=== PATIENT | male | born 1960 | race Caucasian/White ===

== ENCOUNTER → 2020-05-02 | Outpatient (CLI) | payer OTHER ==
[~2020-05-02] MED LIST: ADVAIR HFA 115-28 GM INH; AMLODIPINE BESYL5 MG PO; COREG 25MG TAB25 MG PO; COZAAR100 MG PO; HYDRALAZINE HCL25 MG PO; HYDROXYZINE HCL25 MG PO; HYGROTON TAB 2525 MG PO; IBUPROFEN800 MG PO; LO-DOSE ASPIRIN81 MG PO; LOVENOX SY30 MG/0.3 SQ; MUCINEX600 MG PO; NORCO 10-325 T1 EACH PO; OMEPRAZOLE20 M1 PO; PANTOPRAZOLE SO40 MG PO; PRAVACHOL80 MG PO; ZYRTEC10 M3 PO
== END ==
LOC: WCC 10:30
PROC: 0KBT0ZZ Excision of Left Lower Leg Muscle, Open Approach (ICD-10-PCS; principal; 2020-05-02)
DX: S81.802A Unspecified open wound, left lower leg, initial encounter (principal); X58.XXXA Exposure to other specified factors, initial encounter; I10 Essential (primary) hypertension; J44.9 Chronic obstructive pulmonary disease, unspecified; Z72.0 Tobacco use; S81.801D Unspecified open wound, right lower leg, subsequent encounter; L97 Non-pressure chronic ulcer of lower limb, not elsewhere classified

== ENCOUNTER → 2020-06-06 | Outpatient (CLI) | payer OTHER | LOC: WCC 10:55 | PROC: 0KBT0ZZ Excision of Left Lower Leg Muscle, Open Approach (ICD-10-PCS; principal; 2020-06-06) | DX: S81.802A Unspecified open wound, left lower leg, initial encounter (principal); S81.801D Unspecified open wound, right lower leg, subsequent encounter; L97 Non-pressure chronic ulcer of lower limb, not elsewhere classified; I10 Essential (primary) hypertension; J44.9 Chronic obstructive pulmonary disease, unspecified; Z72.0 Tobacco use; X58.XXXA Exposure to other specified factors, initial encounter ==

== ENCOUNTER → 2020-06-13 | Outpatient (CLI) | payer OTHER | LOC: WCC 10:49 | PROC: 0KBT0ZZ Excision of Left Lower Leg Muscle, Open Approach (ICD-10-PCS; principal; 2020-06-13) | DX: S81.802A Unspecified open wound, left lower leg, initial encounter (principal); X58.XXXA Exposure to other specified factors, initial encounter; L97 Non-pressure chronic ulcer of lower limb, not elsewhere classified; I10 Essential (primary) hypertension; J44.9 Chronic obstructive pulmonary disease, unspecified; Z72.0 Tobacco use; S81.801D Unspecified open wound, right lower leg, subsequent encounter ==

== ENCOUNTER → 2020-06-27 | Outpatient (CLI) | payer OTHER | LOC: WCC 10:45 | PROC: 0JBP0ZZ Excision of Left Lower Leg Subcutaneous Tissue and Fascia, Open Approach (ICD-10-PCS; principal; 2020-06-27) | DX: S81.801D Unspecified open wound, right lower leg, subsequent encounter (principal); X58.XXXD Exposure to other specified factors, subsequent encounter; L97.825 Non-pressure chronic ulcer of other part of left lower leg with muscle involvement without evidence of necrosis; I10 Essential (primary) hypertension; J44.9 Chronic obstructive pulmonary disease, unspecified; Z72.0 Tobacco use; Z79.899 Other long term (current) drug therapy ==

== ENCOUNTER → 2020-07-04 | Outpatient (CLI) | payer OTHER | LOC: WCC 10:08 | PROC: 0JBP0ZZ Excision of Left Lower Leg Subcutaneous Tissue and Fascia, Open Approach (ICD-10-PCS; principal; 2020-07-04) | DX: S81.802A Unspecified open wound, left lower leg, initial encounter (principal); X58.XXXA Exposure to other specified factors, initial encounter ==

== ENCOUNTER → 2020-07-11 | Outpatient (CLI) | payer OTHER | LOC: WCC 11:00 | DX: L97.825 Non-pressure chronic ulcer of other part of left lower leg with muscle involvement without evidence of necrosis (principal); I10 Essential (primary) hypertension; J44.9 Chronic obstructive pulmonary disease, unspecified; S81.801D Unspecified open wound, right lower leg, subsequent encounter; Z72.0 Tobacco use | CPT/HCPCS: 97597 ==

== ENCOUNTER → 2020-07-19 | Outpatient (CLI) | payer OTHER | LOC: CT 09:38 | DX: I10 Essential (primary) hypertension (principal); E27.8 Other specified disorders of adrenal gland | CPT/HCPCS: 36415; 82565; Q9967 ==

== ENCOUNTER → 2020-07-19 | Outpatient (CLI) | payer OTHER | LOC: WCC 11:49 | DX: S81.802A Unspecified open wound, left lower leg, initial encounter (principal); X58.XXXA Exposure to other specified factors, initial encounter | CPT/HCPCS: G0463 ==